=== PATIENT | female | born 2000 | race American Indian/Alaskan Native ===

== ENCOUNTER 2020-01-04 09:43 | Day surgery (SDC) | payer MEDICAID ==
[2020-01-02 10:16] LABS: Hemoglobin 11.9 gm/dl (10.1-14.3); Mean Corpuscular HGB Conc 34 % (30-34); Mean Corpuscular Volume 74 fl (79-97); Platelet Count 344 K/mm3 (140-440); Red Blood Count 4.71 M/mm3 (3.65-5.03); Red Cell Distribution Width 15.9 % (13.2-15.2)
[2020-01-02 10:30] LABS: Blood Urea Nitrogen 11 mg/dL (7-17); Calcium 9.3 mg/dL (8.4-10.2); Hemolysis Index 0
[2020-01-02 10:34] LABS: BUN/Creatinine Ratio 16
--- NOTE | 2020-01-04 09:13 | Anesthesia Day of Surgery ---
Anesthesia Day of Surgery - Day of Surgery Patient Examined: Yes Patient H&P Reviewed: Yes Patient is NPO: Yes
--- NOTE | 2020-01-04 09:14 | Anesthesia Consultation ---
Anesthesia Consult and Med Hx Date of service: 01/04/20 - Airway Anesthetic Teeth Evaluation: Good ROM Head & Neck: Adequate Mental/Hyoid Distance: Adequate Mallampati Class: Class II Intubation Access Assessment: Good - Pre-Operative Health Status ASA Pre-Surgery Classification: ASA2 Proposed Anesthetic Plan: General Nerve Block: es - Pulmonary Hx Smoking: No (+2FS) Hx Sleep Apnea: No (HAM PRE SCREEN LOW RISK) - Cardiovascular System Hx Hypertension: No - Central Nervous System Hx Back Pain: Yes Hx Psychiatric Problems: Yes (Anxiety) - Gastrointestinal Hx Gastroesophageal Reflux Disease: Yes - Hematic Hx Anemia: Yes Hx Sickle Cell Disease: No - Other Systems Hx Substance Use: Yes (MARIJUANA 2-3X PER WEEK) Hx Cancer: No Hx Obesity: Yes - Additional Comments Anesthesia Medical History Comments: COVID NEGATIVE
[~2020-01-04 09:43] MED LIST: ACETAMINOPHEN 500 MG TAB PO NR; BACTERIOSTATIC SODIUM CHLORIDE 0.9% 30 ML VIAL INFILTRATI ONE; HYDROmorphone 1 MG/1 ML INJ IV PRN; MAGNESIUM OXIDE 400 MG TAB PO NR; ONDANSETRON 4 MG/2 ML INJ IV PRN; ceFAZolin/Water 2 GM/20 ML 2 GM/20 ML SYRINGE IV NR
[2020-01-04] MEDS ORDERED: CELECOXIB 200 MG CAP PO NR (10:00)
[2020-01-04] MEDS ORDERED: LACTATED RINGERS 1,000 ML IV SCH (10:00)
[2020-01-04] MEDS ORDERED: MIDAZOLAM 2 MG/2 ML INJ IV NR (10:00)
[2020-01-04] MEDS ORDERED: LIDOCAINE (1%) 10 MG/1 ML VIAL 20 ML MDV ONE (10:03)
[2020-01-04] MEDS ORDERED: BUPIVACAINE/PF (0.5%) 5 MG/1 ML 30 ML VIAL INFILTRATI ONE (10:03)
[2020-01-04] MEDS ORDERED: BUPIVACAINE-EPINEPHRINE/PF 0.25%-1:200,000 (30 ML) VIAL INFILTRATI ONE (10:07)
[2020-01-04] MEDS ORDERED: fentaNYL 100 MCG/2 ML INJ IV SCH (10:10)
[2020-01-04] MEDS ORDERED: fentaNYL 100 MCG/2 ML INJ ONE (10:10)
[2020-01-04] MEDS ORDERED: LIDOCAINE MPF (2%) 20 MG/1 ML VIAL 5 ML ONE (10:40)
[2020-01-04] MEDS ORDERED: ROCURONIUM 50 MG/5 ML INJ IV ONE (10:40)
[2020-01-04] MEDS ORDERED: propofoL 200 MG/20 ML VIAL IV ONE (10:40)
[2020-01-04] MEDS ORDERED: HYDROmorphone 1 MG/1 ML INJ ONE (10:40)
[2020-01-04] MEDS ORDERED: SCOPOLAMINE TRANSDERMAL PATCH 72 HR TD ONE (10:48)
--- NOTE | 2020-01-04 10:50 | Progress Note ---
Regional Anesthesia Block - Regional Anesthesia Block Performed By:: BUCK WATSON Procedure: Silviano erector spinae block Pt Id, consent, time out; performed. Pt on monitor, VSS stable, sedation given per pre-op RN. Sterile prep and drape. Left side Landmarks Identified with ultrasound. 3cc 1% lido skin wheel. Needle advance in plane, 15cc .25% bupivacaine injected intimately with negatives aspiration. Right side Landmarks Identified with ultrasound. 3cc 1% lido skin wheel. Needle advance in plane, 15cc .25% bupivacaine injected intimately with negatives aspiration Pt tolerated procedure will, VSS stable. Right side Landmarks Identified with ultrasound. 3cc 1% lido skin wheel. Needle advance in plane, 15cc .25% bupivacaine injected intimately with negatives aspiration. Pt tolerated procedure will, VSS stable.
[2020-01-04] MEDS ORDERED: SCOPOLAMINE TRANSDERMAL PATCH 72 HR TD NR (11:00)
[2020-01-04] MEDS ORDERED: SODIUM CHLORIDE 0.9% IRR 1,500 ML BOTTLE IR ONE (11:25)
[2020-01-04] MEDS ORDERED: SODIUM CHLORIDE 0.9% IRRIG SOLN 3000 ML IR ONE (11:59)
[2020-01-04] MEDS ORDERED: ONDANSETRON 4 MG/2 ML INJ ONE (12:12)
[2020-01-04] MEDS ORDERED: GLYCOPYRROLATE 0.4 MG/2 ML INJ ONE (12:12)
[2020-01-04] MEDS ORDERED: KETOROLAC 30 MG/1 ML INJ ONE (12:12)
[2020-01-04] MEDS ORDERED: NEOSTIGMINE 10MG/10 ML INJ MDV ONE (12:12)
--- NOTE | 2020-01-04 12:24 | Operative Report ---
Operative Report Operative Report: Date of procedure: 01/04/20 Pre-op diagnosis: Symptomatic cholelithiasis Post-op diagnosis: same Procedure: Laparoscopic cholecystectomy Anesthesia: GETA, regional Findings: Omental adhesions to the gallbladder Surgeon: STACY STODDARD Estimated blood loss: minimal Pathology: list (Gallbladder) Specimen disposition: to lab Condition: stable - Hospital course Hospital course: Patient observed in PACU and discharged home in stable condition when criteria met HPI an indication: 19 yo F who presented to the surgery clinic with complaints of intermittent right upper quadrant pain with nausea. She was found to have gallstones on ultrasound. Recommended that patient undergo cholecystectomy. All risks, benefits, alternatives to surgery were discussed and questions answered. Consent obtained. Procedure in detail: The patient was identified in the preoperative area and taken back to the operating room, placed on the operating room table in supine position. After anesthesia was induced, the abdomen was prepped and draped in usual sterile fashion and timeout was performed. The patient had received a regional block. Using an 11 blade a marbella incision was made in the left upper quadrant through which a Veress needle was inserted. The Veress needle positioning was confirmed using the saline drop test and during insufflation it was noted that the pressures were high, therefore the Veress needle was removed. A supraumbilical incision was then made with the 11 blade and the Veress needle inserted through this incision. The Veress needle position was confirmed using the saline drop test and the abdomen insufflated to 15 mmHg without incident. The Veress needle was then removed and a 5 mm Optiview trocar placed through the incision. The abdomen was then inspected and there was no underlying injury to any of the abdominal contents. An additional 12 mm subxyphoid port, and 2, 5mm RUQ ports were then placed under direct visualization. The patient was then placed into reverse Trendelberg and tilted to the left. The gallbladder was visualized and there were a moderate amount of omental adhesions to the gallbladder. The gallbladder fundus was grasped and lifted cephalad and above the liver. The omental adhesions were dissected using hook electrocautery. The cystic duct and artery were then carefully dissected and the critical view obtained, and the cystic duct and artery were the only two structures seen entering the gallbladder. Three clips were then placed on the proximal aspect of the cystic duct and one clip distally, and 1 clip on the cystic artery proximally. The cystic artery was diminutive. The cystic duct was then transected in between the clips using EndoShears. The cystic artery was ligated using electrocautery distal to the clip. The gallbladder was dissected off the liver bed using hook electrocautery. The gallbladder was placed into a Endo Catch bag and removed from the abdomen via the 12mm port. The gallbladder fossa was then inspected and there was no identifiable bleeding or bile leakage. Hemostasis was ensured. The clips on the cystic duct and artery were visualized and intact. The patient was then placed into neutral position and Morison's pouch was irrigated until the irrigant returned clear. The 12 mm port fascia was closed with interrupted 0 Vicryl suture using the Richar Mejia device. The remaining ports were removed under direct visualization. Skin incisions were closed with 4-0 Monocryl subcuticular stitches and skin glue. At the end case all sponge, instrument, sharp counts were correct 2. The patient was awoken from anesthesia, extubated, taken to PACU in stable condition.
--- NOTE | 2020-01-04 12:26 | Short Stay Summary ---
Short Stay Documentation Date of service: 01/04/20 - History Principal diagnosis: symptomatic cholelithiasis H&P: obtained from office - Allergies and Medications Current Medications: Allergies No Known Allergies Allergy (Verified 12/29/19 11:58) Home Medications Medication Instructions Recorded Confirmed Last Taken Type No Known Home Medications [No 12/29/19 12/29/19 Unknown History Reported Home Medications] Active Medications Celecoxib (Celebrex) 400 mg PO PREOP NR Stop: 01/04/20 16:00 Last Admin: 01/04/20 09:28 Dose: 400 mg Documented by: Fentanyl (Sublimaze) 50 mcg IV PREOP EFE Stop: 01/04/20 14:00 Last Admin: 01/04/20 10:14 Dose: 50 mcg Documented by: Hydromorphone HCl (Dilaudid) 0.25 mg IV Q10MIN PRN PRN Reason: Pain, Moderate (4-6) Stop: 01/04/20 23:00 Hydromorphone HCl (Dilaudid) 0.5 mg IV Q10MIN PRN PRN Reason: Pain , Severe (7-10) Stop: 01/04/20 23:00 Cefazolin Sodium (Ancef/Sterile Water 2 Gm/20 Ml) 2 gm in 20 mls @ 80 mls/hr IV PREOP NR Stop: 01/04/20 21:00 Lactated Ringer's (Lactated Ringers) 1,000 mls @ 125 mls/hr IV DIRECT EFE Last Admin: 01/04/20 09:50 Dose: 125 mls/hr Documented by: Magnesium Oxide (Mag-Ox) 400 mg PO ONCE NR Stop: 01/04/20 16:00 Last Admin: 01/04/20 09:28 Dose: 400 mg Documented by: Midazolam HCl (Versed) 2 mg IV PREOP NR Stop: 01/04/20 23:59 Last Admin: 01/04/20 10:14 Dose: 2 mg Documented by: Ondansetron HCl (Zofran) 4 mg IV ONCE PRN PRN Reason: Nausea And Vomiting Scopolamine (Transderm-Scop) 1 each TD PREOP NR Stop: 01/04/20 21:00 Last Admin: 01/04/20 10:47 Dose: 1 each Documented by: - Brief post op/procedure progress note Date of procedure: 01/04/20 Pre-op diagnosis: Symptomatic cholelithiasis Post-op diagnosis: same Procedure: Laparoscopic cholecystectomy Anesthesia: GETA, regional Findings: Omental adhesions to the gallbladder Surgeon: STACY STODDARD Estimated blood loss: minimal Pathology: list (Gallbladder) Specimen disposition: to lab Condition: stable - Hospital course Hospital course: Patient observed in PACU and discharged home in stable condition when criteria met - Disposition Condition at discharge: Good Disposition: - TO HOME OR SELFCARE Short Stay Discharge Plan Activity: other (Avoid heavy lifting for the next 2 weeks) Diet: low fat Wound: open to air, per your surgeon's advice Additional Instructions: See printed discharge instructions Follow up with: PRIMARY CARE,MD [Primary Care Provider] - 7 Days STACY STODDARD DO [Staff Physician] - 14 Days Prescriptions: HYDROcodone/APAP 5-325 [[place] 5/325] 1 each PO Q6HR PRN #10 tablet PRN Reason: Pain
[2020-01-04] MEDS: HYDROmorphone 1 MG/1 ML INJ IV PRN ×2 (12:37→12:47)
[2020-01-04] MEDS ORDERED: HYDROcodone/ACETAMINOPHEN 5-325 MG TAB PO PRN (12:46)
[2020-01-04 13:17] VITALS: BP 104/62
--- NOTE | 2020-01-04 13:22 | Post Anesthesia Evaluation ---
- Post Anesthesia Evaluation Patient Participated: Yes Airway Patent: Yes Stable Respiratory Function: Yes Nausea/Vomiting: No Temp > 96.8F: Yes Pain Manageable: Yes Adequeate Hydration: Yes Anesthesia Complications: No Block Receding Appropriately: Yes Patient on Ventilator: No
== END 2020-01-04 13:55 | disposition home or self-care (01) ==
LOC: OR 09:43
PROVIDERS: ATTEND Surgery
DX: K80.10 Calculus of gallbladder with chronic cholecystitis without obstruction (principal); Z20.828 Contact with and (suspected) exposure to other viral communicable diseases; E78.00 Pure hypercholesterolemia, unspecified; E66.9 Obesity, unspecified; F32.9 Major depressive disorder, single episode, unspecified; K21.9 Gastro-esophageal reflux disease without esophagitis; F41.9 Anxiety disorder, unspecified; Z68.41 Body mass index [BMI] 40.0-44.9, adult; Z79.899 Other long term (current) drug therapy; Z86.2 Personal history of diseases of the blood and blood-forming organs and certain disorders involving the immune mechanism
CPT/HCPCS: 36415; 47562; 80048; 84703; 85027; 88304; A4217; J0690; J1170; J1885; J2250; J2405; J2704; J2710; J3010; J7120; U0003; 64450